=== PATIENT | male | born 1995 | race African-American/Black ===

== ENCOUNTER 2016-08-25 10:19 | Emergency (ER) | payer SELFPAY ==
[~2016-08-25] VITALS: Ht 190.5 cm; Wt 115.0 kg
[~2016-08-25 10:19] MED LIST: CLIN150 PO; HYDR-3533 PO; Z.0.NO CURRENT MEDS
[2016-08-25 10:20] VITALS: BP 132/91; PULSE 73; RESP 16; TEMP 98.3; O2SAT 99
--- NOTE | 2016-08-25 10:29 | PD ---
HPI . "risen to buttocks" Chief Complaint: Skin Problem Time Seen by Provider: 10:29 Travel History International Travel<30 days: No Contact w/Intl Traveler<30days: No Traveled to known affect area: No History of Present Illness HPI 21-year-old male with history of recurrent "risens" to his buttocks here with c/ o a new "risen" for the past three days. Patient says that he has had this several times in the past before he has had to go to the emergency department for incision and drainage, but has never been able to follow through with recommendations thereafter. He denies any fever or chills. He complains of pain in the area. He rates it as mild to moderate without any further radiation. He is accompanied by his significant other. PFSH Past Medical History Asthma: Yes Diminished Hearing: No Immunizations Current: Yes Social History Alcohol Use: Yes Tobacco Use: Yes Substance Use: No Allergies-Medications (Allergen,Severity, Reaction): Coded Allergies: Albuterol (Verified Allergy, Mild, RASH, 03/05/16) Reported Meds & Prescriptions Reported Meds & Active Scripts Active Ibuprofen 800 Mg Tab 800 Mg PO TID Bactrim DS (Sulfamethoxazole-Trimethoprim) 800-160 Mg Tab 1 Tab PO BID Review of Systems General / Constitutional: No: Fever Eyes: No: Visual changes HENT: No: Headaches Cardiovascular: No: Chest Pain or Discomfort Respiratory: No: Shortness of Breath Gastrointestinal: No: Abdominal Pain Genitourinary: No: Dysuria Musculoskeletal: No: Pain Skin: Positive Other (infected pilonidal cyst ), No Rash Neurologic: No: Weakness Psychiatric: No: Depression Endocrine: No: Polydipsia Hematologic/Lymphatic: No: Easy Bruising Physical Exam Narrative GENERAL: AAO x 3, no acute distress, Well-nourished, well-developed patient. SKIN: Warm and dry. No visible rashes or bruising. pilonidal cyst larger on right side of gluteal cleft, indurated about 2 cm and fluctuance present HEAD: Normocephalic and atraumatic. EYES: No scleral icterus. No injection or drainage. ENT: No nasal drainage noted. Mucous membranes pink. Airway patent. NECK: Supple, trachea midline. No JVD. CARDIOVASCULAR: Regular rate and rhythm without murmurs, gallops, or rubs. RESPIRATORY: Breath sounds equal bilaterally. No accessory muscle use. No rhonchi or rales. GASTROINTESTINAL: Abdomen soft, non-tender, nondistended. EXTREMITIES: No cyanosis or edema. BACK: Nontender without obvious deformity. No CVA tenderness. PSYCH: AAO x 3, normal affect. Data Data Last Documented VS Vital Signs Date Time Temp Pulse Resp B/P Pulse Ox O2 Delivery O2 Flow Rate FiO2 08/25/16 10:20 98.3 73 16 132/91 99 Orders Wound Culture And Gram Stain (08/25/16 10:34) Lidocaine 1% Inj (50 Ml) (Xylocaine 1% I (08/25/16 10:45) Ibuprofen (Motrin) (08/25/16 11:15) Wound Care (08/25/16 11:07) MDM Medical Decision Making Medical Screen Exam Complete: Yes Emergency Medical Condition: Yes Medical Record Reviewed: Yes Differential Diagnosis Infected pilonidal cyst, less likely zoster, less likely folliculitis Narrative Course This is a 21-year-old male here with an infected pilonidal cyst. This seems to be a recurrent issue. Patient has consented to incision and drainage. I've explained to him that ultimately he will need to see a surgeon for removal of this cyst. Patient tolerated incision and drainage without incident. Area was cleaned and sterile dressing was applied. I prescribed him Bactrim for coverage of MRSA. I explained to him that this is going to be a recurrent issue and once again ultimately he will need to establish with a primary care provider for referrals to general surgery or dermatology. Ibuprofen for pain. Patient verbalized understanding of instructions, questions were answered, and thanked me for their care. I advised them if their condition worsens, please return to the nearest emergency room for further care. Procedures Procedure Narrative After the risks and benefits were discussed the following procedure was performed: INCISION AND DRAINAGE OF ABSCESS: The area was prepped and was sterilely draped. A subcutaneous wheal of 1% % Xylocaine with a total number 6 mL was used to anesthetize the area. The area was properly anesthetized. A number 11 scalpel was used to make a 1-cm incision across the area of the abscess. Loculations were broken up. Cultures were obtained. The abscess was drained an irrigated with normal saline. Approximately 6 cc of purulent matter expressed. Sterile dressing was applied after the procedure. Diagnosis Primary Impression: Infected pilonidal cyst Patient Instructions: Abscess Incision and Drainage (ED), General Instructions Additional Instructions: Please return to emergency department if your symptoms return or worsen. Follow up with your primary care provider. Take medications as prescribed. [place] for worsening signs of infection which include fever, increased redness , increased warmth, purulent drainage, increased swelling or streaking. If any of these develop, please go to the nearest emergency room. As we discussed, you will need to establish with a primary care provider who will be able to refer you to a general surgeon for surgical removal of this cyst. You can use over the counter Tylenol or Motrin as needed for pain. Clean area with soap and water at least twice daily. Perform dressing changes as needed, but at least twice a day. Med/Other Pt SpecificInfo: Prescription(s) given Scripts Ibuprofen 800 Mg [id number] Mg PO TID #21 TAB Prov:Mike Alcantara MD 08/25/16 Sulfamethoxazole-Trimethoprim (Bactrim DS)800-160 Mg Tab1 Tab PO BID #20 TAB Prov:Mike Alcantara MD 08/25/16 Disposition: 01 DISCHARGE HOME Condition: Stable Sushila Guerin August 25, 2016 10:29
[2016-08-25] MEDS ORDERED: LIDOCAINE HCL 1% 50 ML VIAL INFIL ONE (10:45)
[2016-08-25] MEDS ORDERED: IBUP800T23 PO (11:02)
[2016-08-25] MEDS ORDERED: BACT800T5 PO (11:02)
[2016-08-25] MEDS ORDERED: IBUPROFEN 800 MG TAB PO ONE (11:15)
== END 2016-08-25 11:36 | disposition home or self-care (01) ==
LOC: NEPD 10:19
DX: L05.91 Pilonidal cyst without abscess (principal)
CPT/HCPCS: 10080; 86403; 87070; 87205

== ENCOUNTER 2016-11-04 13:15 | Emergency (ER) | payer SELFPAY ==
[2016-11-04] VITALS (8 sets, daily range): BP systolic 139–156; BP diastolic 65–92; PULSE 46–79; RESP 14–24; TEMP 97.5; O2SAT 96–100
[~2016-11-04] VITALS: Ht 185.4 cm; Wt 100.0 kg
[~2016-11-04 13:15] MED LIST changes: +BACT800T5 PO; -CLIN150 PO; -HYDR-3533 PO; +IBUP800T23 PO; -Z.0.NO CURRENT MEDS
--- NOTE | 2016-11-04 13:21 | PD ---
Physical Exam Exam Limitations: Clinical Condition, Poor Historian Date Seen by Provider: Nov 04, 2016 Time Seen by Provider: 13:19 Narrative 21 y/o male with GALLARDO, Nausea, Vomiting. Admits to ETOH last night. GALLARDO is . Vital signs reviewed. Patient stable. Awaiting Bed placement. Data Data Last Documented VS Vital Signs Date Time Temp Pulse Resp B/P Pulse Ox O2 Delivery O2 Flow Rate FiO2 11/04/16 13:17 97.5 68 22 152/78 98 MDM Medical Record Reviewed: Yes Supervised Visit with KENDALL: Yes Condition: Stable Hernesto Rowland Nov 04, 2016 13:21
[2016-11-04] MEDS ORDERED: SODIUM CHLOR 0.9% 1000 ML INJ 1,000 ML IV ONE (14:00)
--- NOTE | 2016-11-04 14:00 | PD ---
HPI Chief Complaint: Altered Mental Status Time Seen by Provider: 13:41 Travel History International Travel<30 days: No Contact w/Intl Traveler<30days: No Traveled to known affect area: No History of Present Illness HPI This patient was dropped off in the emergency room by his cousin. Patient has very limited ability to provide history or review of systems. He is significantly altered. He does admit to drinking alcohol today. He admits to smoking marijuana. He denies an intentional overdose or IV drugs. He denies taking any pills. [facility] Past Medical History Asthma: Yes Diminished Hearing: No Immunizations Current: Yes Past Surgical History Surgical History: Unable to Obtain Social History Alcohol Use: Yes Tobacco Use: No Substance Use: No Allergies-Medications (Allergen,Severity, Reaction): Coded Allergies: Albuterol (Verified Allergy, Mild, RASH, 11/04/16) Reported Meds & Prescriptions Reported Meds & Active Scripts Active No Active Prescriptions or Reported Medications Review of Systems ROS Limitations: Clinical Condition, Altered Mental Status, Uncooperative, Poor Historian Physical Exam Narrative GENERAL: Well-nourished, well-developed patient with altered mental status . SKIN: Focused skin assessment reveals no rash and nodules. Skin is Warm and dry. HEAD: Atraumatic. Normocephalic. EYES: Pupils equal and round. No scleral icterus. No injection or drainage. ENT: No nasal bleeding or discharge. Mucous membranes pink and moist. NECK: Trachea midline. No JVD. No meningeal signs CARDIOVASCULAR: Regular rate and rhythm. No murmur appreciated. RESPIRATORY: No accessory muscle use. Clear to auscultation. Breath sounds equal bilaterally. GASTROINTESTINAL: Abdomen soft, non-tender, nondistended. Hepatic and splenic margins not palpable. MUSCULOSKELETAL: No obvious deformities. No clubbing. No cyanosis. No edema. NEUROLOGICAL: Awake but drowsy and lethargic. No obvious cranial nerve deficits. Motor exam is challenging because his participation is very limited. Soft-spoken mumbling speech. PSYCHIATRIC: Sluggish and drowsy mood and affect; insight and judgment very poor. Data Data Last Documented VS Vital Signs Date Time Temp Pulse Resp B/P Pulse Ox O2 Delivery O2 Flow Rate FiO2 11/04/16 15:18 56 18 139/92 99 Room Air 11/04/16 13:17 97.5 Orders Basic Metabolic Panel (Bmp) (11/04/16 13:51) Complete Blood Count With Diff (11/04/16 13:51) Ct Brain W/O Iv Contrast(Rout) (11/04/16 13:51) Ecg Monitoring (11/04/16 13:51) Iv Access Insert/Monitor (11/04/16 13:51) Oximetry (11/04/16 13:51) Sodium Chloride 0.9% Flush (Ns Flush) (11/04/16 14:00) Drug Screen, Random Urine (11/04/16 13:51) Alcohol (Ethanol) (11/04/16 13:51) Tylenol (Acetaminophen) (11/04/16 13:51) Salicylates (Aspirin) (11/04/16 13:51) Sodium Chlor 0.9% 1000 Ml Inj (Ns 1000 M (11/04/16 14:00) Lactic Acid (11/04/16 14:00) Blood Culture (11/04/16 14:00) Ondansetron Inj (Zofran Inj) (11/04/16 14:15) Ketorolac Inj (Toradol Inj) (11/04/16 16:45) Labs Laboratory Tests Test 11/04/16 11/04/16 14:00 15:15 White Blood Count 10.9 TH/MM3 Red Blood Count 5.70 MIL/MM3 Hemoglobin 15.9 GM/DL Hematocrit 47.7 % Mean Corpuscular Volume 83.7 FL Mean Corpuscular Hemoglobin 27.8 PG Mean Corpuscular Hemoglobin 33.2 % Concent Red Cell Distribution Width 13.4 % Platelet Count 244 TH/MM3 Mean Platelet Volume 7.8 FL Neutrophils (%) (Auto) 72.2 % Lymphocytes (%) (Auto) 21.4 % Monocytes (%) (Auto) 5.8 % Eosinophils (%) (Auto) 0.2 % Basophils (%) (Auto) 0.4 % Neutrophils # (Auto) 7.9 TH/MM3 Lymphocytes # (Auto) 2.3 TH/MM3 Monocytes # (Auto) 0.6 TH/MM3 Eosinophils # (Auto) 0.0 TH/MM3 Basophils # (Auto) 0.0 TH/MM3 CBC Comment DIFF FINAL Differential Comment Sodium Level 135 MEQ/L Potassium Level 3.4 MEQ/L Chloride Level 101 MEQ/L Carbon Dioxide Level 23.6 MEQ/L Anion Gap 10 MEQ/L Blood Urea Nitrogen 13 MG/DL Creatinine 1.38 MG/DL Estimat Glomerular Filtration 77 ML/MIN Rate Random Glucose 158 MG/DL Lactic Acid Level 2.8 mmol/L Calcium Level 9.2 MG/DL Salicylates Level LESS THAN 1.7 MG/DL Acetaminophen Level LESS THAN 2.0 MCG/ML Ethyl Alcohol Level LESS THAN 3 MG/DL Urine Opiates Screen NEG Urine Barbiturates Screen NEG Urine Amphetamines Screen NEG Urine Benzodiazepines Screen NEG Urine Cocaine Screen NEG Urine Cannabinoids Screen POS MDM Medical Decision Making Medical Screen Exam Complete: Yes Emergency Medical Condition: Yes Medical Record Reviewed: Yes Differential Diagnosis Drug intoxication, alcohol intoxication, intracranial hemorrhage Narrative Course I have reviewed the patient's electronic medical record. I've ordered altered mental status workup He is very altered IV placed CBC is normal Metabolic profile is normal Alcohol level is negative Tylenol is negative Aspirin is negative CT brain is normal Extended cardiac monitoring reveals sinus rhythm without ectopy lactate is 2.8, significance unclear blood cultures sent Etiology of his altered mental status is unclear. He ate went through extensive workup. However he is steadily improved over his 3 hours I've been working him up here. He has no fever or leukocytosis or meningeal signs or tachycardia or hypotension to suggest admission would be indicated On reassessment at 3 hours later he is now clear and alert and conversant He is much better I don't think at this point he rises to a level of hospitalization given his improvement I gave him 30 mg IV Toradol His tox screen does reveal marijuana but he is not intoxicated with alcohol He should avoid this Should follow-up with primary care We'll try to find a ride home for him Critical Care Narrative Aggregate critical care time was 35 minutes. Time to perform other separately billable procedures was not included in the critical care time. My time did not include minutes spent treating any other patients simultaneously or on activities that did not directly contribute to the patient's treatment. The services I provided to this patient were to treat and/or prevent clinically significant deterioration that could result in: intracranial hemorrhage, permanent neurologic deficit, hypoxemic brain injury I provided critical care services requiring my management, as noted below: Chart data review, documentation time, medication orders and management, vital sign assessments/reviewing monitor data, ordering and reviewing lab tests, ordering and interpreting/reviewing x-rays and diagnostic studies, care of the patient and discussion of the patient with the admitting physicians. Diagnosis Primary Impression: Altered mental status, unspecified Qualified Code: R41.82 - Altered mental status, unspecified altered mental status type Additional Impression: Marijuana use Additional Instructions: The patient was advised to follow up with their physician and return if they worsen. Avoid marijuana Med/Other Pt SpecificInfo: Other Scripts No Active Prescriptions or Reported Meds Disposition: 01 DISCHARGE HOME Condition: Stable Yang Colón MD Nov 04, 2016 14:00
[2016-11-04] MEDS: SODIUM CHLORIDE 0.9% FLUSH 5 ML FLUSH IV FLUSH PRN ×2 (14:01→14:21)
[2016-11-04] MEDS ORDERED: ONDANSETRON HCL 4 MG/2 ML VIAL IV ONE (14:15)
[2016-11-04 14:27] LABS: AUTOMATED NEUTROPHIL # 7.9 TH/MM3 (1.8-7.7); BASOPHIL % 0.4 % (0.0-2.0); EOSINOPHIL % 0.2 % (0.0-4.0); HEMATOCRIT 47.7 % (39.0-51.0); HEMO FLAGS DIFF FINAL; LYMPH % 21.4 % (9.0-44.0); LYMPHOCYTE # 2.3 TH/MM3 (1.0-4.8); MEAN CELL VOLUME 83.7 FL (80.0-100.0); MEAN CORPUSCULAR HEMOGLOBIN 27.8 PG (27.0-34.0); MEAN CORPUSCULAR HGB CONC 33.2 % (32.0-36.0); MONO % 5.8 % (0.0-8.0); NEUT % 72.2 % (16.0-70.0); PLATELET COUNT 244 TH/MM3 (150-450); RED CELL DISTRIBUTION WIDTH 13.4 % (11.6-17.2); WHITE BLOOD COUNT 10.9 TH/MM3 (4.0-11.0)
[2016-11-04 14:44] LABS: ANION GAP 10 MEQ/L (5-15); BICARBONATE 23.6 MEQ/L (21.0-32.0); BLOOD UREA NITROGEN 13 MG/DL (7-18); CHLORIDE 101 MEQ/L (98-107); GLOMERULAR FILTRATION RATE 77 ML/MIN (>89); POTASSIUM 3.4 MEQ/L (3.5-5.1); SODIUM (NA) 135 MEQ/L (136-145)
[2016-11-04 15:01] LABS: ACETAMINOPHEN LESS THAN 2.0 MCG/ML (10.0-30.0)
[2016-11-04 15:49] LABS: AMPHETAMINE, URINE NEG (NEG); BARBITURATES, URINE NEG (NEG); COCAINE, URINE NEG (NEG)
--- NOTE | 2016-11-04 16:16 | RADRPT ---
EXAM DATE/TIME: 11/04/2016 15:54 [place] COMPARISON: CT BRAIN W/O CONTRAST, December 10, 2010, 19:24. INDICATIONS : Altered mental status; Cephalgia. RADIATION DOSE: 35.59 CTDIvol (mGy) MEDICAL HISTORY : None SURGICAL HISTORY : None. ENCOUNTER: Initial ACUITY: 1 day PAIN SCALE: 3/10 LOCATION: chest TECHNIQUE: Multiple contiguous axial images were obtained of the head. Using automated exposure control and adj ustment of the mA and/or kV according to patient size, radiation dose was kept as low as reasonably a chievable to obtain optimal diagnostic quality images. DICOM format image data is available electro nically for review and comparison. FINDINGS: CEREBRUM: The ventricles are normal for age. No evidence of midline shift, mass lesion, hemorrhage or acute in farction. No extra-axial fluid collections are seen. POSTERIOR FOSSA: The cerebellum and brainstem are intact. The 4th ventricle is midline. The cerebellopontine angle i s unremarkable. EXTRACRANIAL: The visualized portion of the orbits is intact. SKULL: The calvaria is intact. No evidence of skull fracture. CONCLUSION: Negative for acute process. Danis Joy MD FACR on November 04, 2016 at 16:14 Board Certified Radiologist. This report was verified electronically.
[2016-11-04] MEDS ORDERED: KETOROLAC TROMETHAMINE 30 MG/ML (IVP) VIAL IV PUSH ONE (16:45)
== END 2016-11-04 18:33 | disposition home or self-care (01) ==
LOC: NEPD 13:15
DX: R41.82 Altered mental status, unspecified (principal); F12.10 Cannabis abuse, uncomplicated; F10.10 Alcohol abuse, uncomplicated; J45.909 Unspecified asthma, uncomplicated
CPT/HCPCS: 70450; 80048; 80307; 83605; 85025; 87040; 96361; 96374; 96375; 99291; J1885; J2405; J7030